=== PATIENT | male | born 1990 | race Caucasian/White ===

== ENCOUNTER 2016-07-25 01:24 | Emergency (ER) | payer SELFPAY ==
[2016-07-25 01:34] VITALS: RESP 16; TEMP 98
[2016-07-25] MEDS ORDERED: Sodium Chloride 0.9% 1,000 ML PRIMARY IV ONE (01:34)
[2016-07-25] MEDS ORDERED: DEXAMETHASONE PF 10 MG/1 ML VIAL IV ONE (01:34)
[2016-07-25] MEDS ORDERED: Famotidine Inj 20 MG in Normal Saline Flush 10 ML IVP ONE (01:34)
--- NOTE | 2016-07-25 01:40 | PDOC ---
Allergy Symptoms HPI - General Chief Complaint: Allergic Reaction/Anaphylaxis Stated Complaint: Allergic reaction Date Seen by Provider: 07/25/16 Time Seen by Provider: 01:35 Source: POSITIVE: Patient, Spouse Exam Limitations: POSITIVE: No limitations Nurse's Notes Reviewed & Considered: Yes - History of Present Illness Initial Comments: Patient comes in today with chief complaint of allergic reaction. Patient comes in today with swelling of his lips hands and feet and a rash over his face and back as well as his anterior chest. The only substance he feels possibly may have caused this with some pistachio ice cream. He relates that he has had pistachios in the last 6 months but no reaction at that time. As any fever or chills or sweats, nausea vomiting or diarrhea, no hematuria or dysuria. Body Location Affected: REPORTS: Upper Extremity (L), Upper Extremity (R), Lower Extremity (L), Lower Extremity (R), Scalp, Forehead, Brow, Face, Lip, Neck , Chest, Back Timing: REPORTS: Abrupt Duration: 1 hour Severity: Moderate Quality: REPORTS: Itching Associated Symptoms: REPORTS: Skin Rash, Swelling Identified Causes: REPORTS: Possibly When Exposed: REPORTS: Just Prior to Sx Onset Where Exposed: REPORTS: Home Suspected Etiology: REPORTS: Nuts Similar Symptoms Previously: Yes (similar reaction to sweet and sour sauce.) Recent Care Received: REPORTS: Denies Treatment Prior To Arrival: REPORTS: No 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 Any Prior Injuries Related to Current Complaint?: No - Patient Home Medications Home Medications: Home Medications Diphenhydramine HCl [Benadryl] 100 mg PO PRN 07/25/16 - Patient Allergies Allergies/Adverse Reactions: Allergies Allergy/AdvReac Type Severity Reaction Status Date / Time cabbage Allergy HIVES Verified 07/25/16 01:27 Past Medical History - gavin [place] History: Denies History Cardiovascular History: Denies History Respiratory History: Denies History Gastrointestinal History: Denies History Genitourinary History: Denies History Endocrine History: Denies History Musculoskeletal History: Denies History Neurological History: Denies History Blood Disorders: Denies History Psychiatric History: Denies History Male Reproductive History: Denies History Cancer History: Denies History In Past Year Been Physically Harmed or Verbally Threatened: No History of MDRO: No Tobacco Use: Never Smoker Alcohol Use: Occasionally Substance Use Type: Marijuana Previous Surgical History: No Significant Family History: No pertinent family hx ROS - Limitations ROS Limitations: No Limitations Constitution: REPORTS: Denies Symptoms Cardiovascular: REPORTS: Denies Cardiac Symptoms Respiratory: REPORTS: Denies Resp Symptoms Neurological: REPORTS: Denies Neuro Symptoms Gastrointestinal: REPORTS: Denies GI Symptoms Endocrine: REPORTS: Denies Symptoms Musculoskeletal: REPORTS: Pedal Edema, Other (Edema of his hands) Genitourinary: REPORTS: Denies Symptoms Eyes: REPORTS: Denies Symptoms ENT: REPORTS: Tongue Swelling, Throat Swelling, Lip Swelling Skin: REPORTS: Denies Skin Symptoms Lympathic: REPORTS: Denies Lympathic Symptoms Immunologic: POSITIVE: Food Allergry (Sweet and sour sauce) Psychiatric: POSITIVE: Denies Psych Symptoms Allergy Symptoms Physical Exam - General Appearance General Appearance: POSITIVE: Alert, Cooperative, No Evidence of Trauma, Mild Distress - HEENT Head / Face: POSITIVE: Atraumatic, Facial Swelling Eyes: POSITIVE: Inspection Normal, PERRL, EOM's Intact, Eyelids Uninjured, Sclera Normal Ears: POSITIVE: Ears Normal Inspection, Auricle Normal Nose: POSITIVE: Inspection Normal, No Apparent Trauma, Nares Normal, No CSF Leak Oropharynx: POSITIVE: Angioedema (facial) Dental: POSITIVE: No Dental Injury - Pupils Pupil Size: 5 mm: Bilateral - Neck Neck: POSITIVE: Normal Inspection, No Apparent Injury - Respiratory Respiratory: POSITIVE: No Respiratory Distress, Breath Sounds Normal - Cardiovascular Cardiovascular: POSITIVE: Regular Rate and Rhythm, Heart Sounds Normal - Abdomen Abdomen: Soft: (All Quadrants), Normal Bowel Sounds: (All Quadrants), Denies Tenderness: (All Quadrants) - Skin Skin: POSITIVE: Intact, Normal For Race, Warm, Dry, Rash - Extremities Extremity: Non-Tender: (All Extremities), Normal ROM: (All Extremities), Normal Inspection: (All Extremities) - Neurological / Psychological Neurological: POSITIVE: Affect Apporpriate, Oriented X3 Allergy Symptoms Progress - Treatment Treatment: POSITIVE: Dexamethasone, Ranitidine - Patient's Progress Pain Medication Addressed: POSITIVE: Not Applicable Re-examine Time: 02:07 Status: POSITIVE: Improved MDM / ED Course: Patient was examined and an IV established. He received 10 mg of IV dexamethasone, Pepcid, normal saline, and Zofran. His rash resolved his swelling resolved and he wished to be discharged home. Next Assessment: Allergic reaction improved. Plan: Discharge home. - Consult Counseled: POSITIVE: Patient, Family, RE: DX Patient Care Time - Estimated PCT Patient Care Time (In Minutes): 20 Vital Signs - Recent Vital Signs Vital Signs: Vital Signs (Last 8 hours) Temp Pulse Resp BP Pulse Ox 07/25/16 01:24 98.0 F 84 16 137/84 94 - VS Reviewed Vital Signs Reviewed: Yes Discharge Clinical Impression: Allergic urticaria Discharge Disposition: Discharged to Home Condition: Stable Patient Instructions Given at Discharge: Urticaria (ED), Allergies (ED)
[2016-07-25] MEDS ORDERED: ONDANSETRON 4 MG/2 ML VIAL IVP ONE (01:45)
== END 2016-07-25 02:19 | disposition home or self-care (01) ==
LOC: ER 01:24
DX: L50.0 Allergic urticaria (principal); R22.0 Localized swelling, mass and lump, head; R21 Rash and other nonspecific skin eruption
CPT/HCPCS: 96361; 96374; 96375; 99282; 99283; J1100; J2405; J7030

== ENCOUNTER 2016-08-08 11:45 | Emergency (ER) | payer SELFPAY ==
[2016-08-08 12:01] VITALS: RESP 16; TEMP 97.6
[2016-08-08] MEDS ORDERED: Sodium Chloride 0.9% 1,000 ML PRIMARY IV ONE (12:01)
[2016-08-08] MEDS ORDERED: NORMAL SALINE 10 ML SYRINGE FLUSH IVP PRN (12:01)
[2016-08-08] MEDS ORDERED: ONDANSETRON 4 MG/2 ML VIAL IVP ONE (12:01)
[2016-08-08] MEDS ORDERED: diphenhydrAMINE 50 MG/1 ML VIAL IV ONE (12:01)
[2016-08-08] MEDS ORDERED: LORazepam 2 MG/1 ML VIAL IVP ONE (12:03)
[2016-08-08 12:17] LABS: BASOPHILS # (AUTO) 0.04 10*3/UL; BASOPHILS % (AUTO) 0.4 % (0-1); EOSINOPHILS # (AUTO) 0.04 10*3/UL; EOSINOPHILS % (AUTO) 0.4 % (0-8); HEMATOCRIT 49.1 % (42.0-52.0); HEMOGLOBIN 17.5 g/dL (14.0-18.0); LYMPHOCYTES # (AUTO) 2.16 10*3/uL; MEAN CORPUSCULAR HEMOGLOBIN 29.7 PG (27-31); MEAN CORPUSCULAR HGB CONC 35.6 g/dL (33-37); MEAN PLATELET VOLUME 8.6 FL (7.4-12.2); MONOCYTES # (AUTO) 0.86 10*3/UL (0.3-0.8); MONOCYTES % (AUTO) 8.2 % (5-15); NEUTROPHILS # (AUTO) 7.39 10*3/UL; NEUTROPHILS % (AUTO) 70.1 % (50-80); RED BLOOD COUNT 5.89 10^6/uL (4.70-6.10)
[2016-08-08 12:19] LABS: PLATELET MORPHOLOGY COMMENT NORMAL MORPHOLOGY (NORM); RBC MORPHOLOGY COMMENT NORMAL MORPHOLOGY (NORM); WBC MORPHOLOGY COMMENT NORMAL MORPHOLOGY (NORM)
[2016-08-08 12:26] LABS: BLOOD UREA NITROGEN 18 mg/dL (7-22); BUN/CREATININE RATIO 16.36 (6-20); CALCIUM 9.9 mg/dL (8.7-10.7); EST GLOMERULAR FILTRATION > 60 (>60 ml/min/1.73m(2)); SERUM ALBUMIN 4.7 g/dL (3.5-4.8)
--- NOTE | 2016-08-08 13:46 | PDOC ---
Nausea/Vomiting/Diarrhea HPI - General Chief Complaint: Nausea / Vomiting / Diarrhea Stated Complaint: vomiting, numb hands Date Seen by Provider: 08/08/16 Time Seen by Provider: 11:55 Source: POSITIVE: Patient Exam Limitations: POSITIVE: No limitations Nurse's Notes Reviewed & Considered: Yes - History of Present Illness Initial Comments: The patient is a 26-year-old male. Patient presents to the emergency room with a 12 hour history of nausea and vomiting and an anxiety attack with hyperventilation. He states his hands and feet and face are becoming numb. He states he cannot slow down his breathing. He denies using any illegal substances. No head, chest or abdominal pain. Some abdominal cramping. Severe anxiety. Body Location Affected: REPORTS: Abdomen (Nausea and vomiting), Other (Anxiety as above.) Timing: REPORTS: Gradual Duration: <24 hours (Reportedly 12 hours) Severity: Moderate Quality: REPORTS: Cramping, Other (Patient denies any pain anywhere except for some mild abdominal cramping.) Abdominal Pain Onset Location: DENIES: RUQ, LUQ, RLQ, LLQ, Epigastric, Periumbilical, Suprapubic, Generalized abdomen, Flank, Other Abdominal Pain Radiation: REPORTS: No radiation Context: DENIES: None, Activity, Bending, Coughing, Fall, Lifting, Near Fall, Rest, Sitting, Sleep, Standing, Turning, Emotional stress, Camping, Bad Food, Out of Country Travel, Other, Recent Surgery, Recent Trauma Modifying Factors: improves with: Nothing Associated Symptoms: REPORTS: Vomiting, Other (Anxiety) Similar Symptoms Previously: Yes Recent Care Received: REPORTS: Denies Any Prior Injuries Related to Current Complaint?: No - Patient Home Medications Home Medications: Home Medications Ondansetron HCl [Zofran] 8 mg PO PRN 08/08/16 - Patient Allergies Allergies/Adverse Reactions: Allergies Allergy/AdvReac Type Severity Reaction Status Date / Time cabbage Allergy HIVES Verified 08/08/16 11:52 Past Medical History - heen HEENT History: Denies History Cardiovascular History: Denies History Respiratory History: Denies History Gastrointestinal History: Denies History Genitourinary History: Denies History Endocrine History: Denies History Musculoskeletal History: Denies History Prosthesis or Implant: No Neurological History: Denies History Blood Disorders: Denies History Psychiatric History: Denies History History of Sexually Transmitted Diseases: No Cancer History: Denies History In Past Year Been Physically Harmed or Verbally Threatened: No History of MDRO: No History of Other Communicable Diseases: No Tobacco Use: Never Smoker Alcohol Use: Occasionally Substance Use Type: Marijuana Previous Surgical History: No Significant Family History: No pertinent family hx Past Medical History Reviewed: Reviewed - No Changes ROS - Limitations ROS Limitations: No Limitations Constitution: REPORTS: Denies Symptoms Cardiovascular: REPORTS: Denies Cardiac Symptoms Respiratory: REPORTS: Denies Resp Symptoms Neurological: REPORTS: Other (Numbness and tingling in hands) Gastrointestinal: REPORTS: Nausea, Vomitting Endocrine: REPORTS: Denies Symptoms Musculoskeletal: REPORTS: Denies MS Symptoms Genitourinary: REPORTS: Denies Symptoms Eyes: REPORTS: Denies Symptoms ENT: REPORTS: Denies Symptoms Skin: REPORTS: Denies Skin Symptoms Lympathic: REPORTS: Denies Lympathic Symptoms Immunologic: POSITIVE: Denies Symptoms Psychiatric: POSITIVE: Anxiety Nausea/Vomiting/Diarrhea Exam - General Appearance General Appearance: POSITIVE: Alert, Cooperative, No Acute Distress, No Evidence of Trauma, Anxious, Other ( Anxious and hyperventilating some spasming of his hands due to hyperventilation) - HEENT HEENT: POSITIVE: Head Inspection Nml, Eyes Inspection Nml, Ears Inspection Nml, Nose Inspection Nml, Oral/Dental Inspect. Nml, Pharynx Inspect. Nml, PERRL, EOMI - Neck Neck: POSITIVE: Supple, Normal Inspection, Non Tender - Respiratory Respiratory: POSITIVE: No Respiratory Distress, Breath Sounds Normal, Chest Non- Tender - Cardiovascular Cardiovascular: POSITIVE: Regular Rate and Rhythm, Heart Sounds Normal, Equal Pulses, Strong Pulses Peripheral Pulses: Radial (R): 2+, Radial (L): 2+ - Abdomen Abdomen: Soft: (All Quadrants), Normal Bowel Sounds: (All Quadrants), Denies Tenderness: (All Quadrants), No Splenomegaly: (All Quadrants), No Hepatomegaly: (All Quadrants), No Guarding: (All Quadrants), No Rebound: (All Quadrants), No Palpable Pulse: (All Quadrants), No Palpabale Mass: (All Quadrants), No Distention: (All Quadrants), No Rigidity: (All Quadrants) - Back Back: POSITIVE: Normal Inspection - Skin Skin: POSITIVE: Intact, Normal For Race, Warm, Dry, No Rash - Extremities Extremity: Non-Tender: (All Extremities), Normal ROM: (All Extremities), Normal Inspection: (All Extremities) - Neurological / Psychological Neurological: POSITIVE: Oriented X3, 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 NEGATIVE: Affect Apporpriate (Very anxious affect) N/V/D Progress - Results Reviewed by me Lab Results Reviewed: Yes Lab Results:: Laboratory Results 08/08/16 Range/Units 12:05 WBC 10.53 (4.8-10.8) 10^3/uL RBC 5.89 (4.70-6.10) 10^6/uL Hgb 17.5 (14.0-18.0) g/dL Hct 49.1 (42.0-52.0) % MCV 83.4 (80-90) FL MCH 29.7 (27-31) PG MCHC 35.6 (33-37) g/dL RDW Std Deviation 39.4 (39-50) fL RDW Coeff of Petar 12.9 (11.5-14.5) % Plt Count 324 (140-350) 10*3/uL MPV 8.6 (7.4-12.2) FL Immature Gran % (Auto) 0.4 (0-5) % Neut % (Auto) 70.1 (50-80) % Lymph % (Auto) 20.5 (10-50) % [place] % (Auto) 8.2 (5-15) % Eos % (Auto) 0.4 (0-8) % Baso % (Auto) 0.4 (0-1) % Immature Gran # (Auto) 0.04 10*3/UL Neut # (Auto) 7.39 10*3/UL Lymph # (Auto) 2.16 10*3/uL [place] # (Auto) 0.86 H (0.3-0.8) 10*3/UL Eos # (Auto) 0.04 10*3/UL Baso # (Auto) 0.04 10*3/UL WBC Morphology Comment Normal morphology (NORM) Plt Morphology Comment Normal morphology (NORM) RBC Morph Comment Normal morphology (NORM) Sodium 139 (135-145) meq/L Potassium 3.9 (3.8-5.2) meq/L Chloride 102 (98-112) meq/L Carbon Dioxide 22 L (23-33) meq/L Anion Gap 15 (5-20) BUN 18 (7-22) mg/dL Creatinine 1.1 (0.70-1.50) mg/dL Estimated GFR > 60 (>60 ml/min/1.73m(2)) BUN/Creatinine Ratio 16.36 (6-20) Glucose 107 (78-110) mg/dL Calculated Osmolality 289.0 (267-292) mOsm/kg Calcium 9.9 (8.7-10.7) mg/dL Total Bilirubin 1.0 (0.3-1.2) mg/dL AST 33 (21-57) IU/L ALT 33 (21-72) IU/L Alkaline Phosphatase 115 (38-126) IU/L Total Protein 8.4 H (6.1-8.0) g/dL Albumin 4.7 (3.5-4.8) g/dL Globulin 3.7 (2.50-4.10) g/dL Albumin/Globulin Ratio 1.20 L (1.3-2.0) mg/g - Patient's Progress Pain Medication Addressed: POSITIVE: Not Applicable School/Work Release Addressed: POSITIVE: Not Applicable Re-examine Time: 13:35 Re-Examine Comment: Patient given a liter of normal saline and 4 mg of Zofran along with 2 mg of Ativan. Patient had no vomiting while in the emergency room. He is much more relaxed and his hyperventilation episode has resolved. He is asymptomatic on discharge. Status: POSITIVE: Improved, Re-Examined (Anxiety attack with hyperventilation resolved. No nausea on discharge.) - Consult Counseled: POSITIVE: Patient, RE: Lab Results, RE: DX, RE: Need for F/U Patient Care Time - Estimated PCT Patient Care Time (In Minutes): 50 Vital Signs - Recent Vital Signs Vital Signs: Vital Signs (Last 8 hours) Temp Pulse Resp BP Pulse Ox 08/08/16 11:55 97.6 F 100 16 111/63 98 - VS Reviewed Vital Signs Reviewed: Yes Discharge Clinical Impression: Nausea and vomiting, Hyperventilation, Anxiety Discharge Disposition: Discharged to Home Condition: Stable Patient Instructions Given at Discharge: Acute Nausea and Vomiting (ED), Anxiety (ED) Additional Instructions: Your blood tests are normal. I'm glad you're feeling better. I believe most of your problem was his severe anxiety attack with hyperventilation. You're going to be fine. Clear liquid diet for 12 hours. Follow-up with your primary care provider. Return here anytime as necessary. Follow Up With: NONE,NONE [Primary Care Provider] - (Instructions as above. Follow-up with your primary care provider. Return here as necessary.)
== END 2016-08-08 13:45 | disposition home or self-care (01) ==
LOC: ER 11:45
DX: R11.2 Nausea with vomiting, unspecified (principal); R06.4 Hyperventilation; F41.9 Anxiety disorder, unspecified; R20.0 Anesthesia of skin
CPT/HCPCS: 80053; 85025; 96361; 96374; 96375; 99283 ×2; J1200; J2060; J2405; J7030

== ENCOUNTER 2016-08-12 10:02 | Emergency (ER) | payer SELFPAY ==
[2016-08-12] MEDS ORDERED: ONDANSETRON 4 MG/2 ML VIAL ONE (10:05)
[2016-08-12] MEDS ORDERED: Sodium Chloride 0.9% 2,000 ML PRIMARY IV ONE (10:22)
[2016-08-12] MEDS ORDERED: PROMETHAZINE 25 MG/1 ML VIAL IM ONE (10:24)
[2016-08-12] MEDS ORDERED: ONDANSETRON 4 MG/2 ML VIAL IVP ONE (10:24)
[2016-08-12 10:52] LABS: BASOPHILS # (AUTO) 0.02 10*3/UL; BASOPHILS % (AUTO) 0.3 % (0-1); EOSINOPHILS % (AUTO) 1.3 % (0-8); HEMATOCRIT 47.1 % (42.0-52.0); HEMOGLOBIN 16.8 g/dL (14.0-18.0); LYMPHOCYTES # (AUTO) 2.11 10*3/uL; MEAN CORPUSCULAR HEMOGLOBIN 29.9 PG (27-31); MEAN CORPUSCULAR HGB CONC 35.7 g/dL (33-37); MEAN PLATELET VOLUME 9.5 FL (7.4-12.2); MONOCYTES # (AUTO) 0.91 10*3/UL (0.3-0.8); MONOCYTES % (AUTO) 11.8 % (5-15); NEUTROPHILS # (AUTO) 4.51 10*3/UL; NEUTROPHILS % (AUTO) 58.7 % (50-80); RED BLOOD COUNT 5.61 10^6/uL (4.70-6.10)
[2016-08-12 10:53] LABS: PLATELET MORPHOLOGY COMMENT NORMAL MORPHOLOGY (NORM); RBC MORPHOLOGY COMMENT NORMAL MORPHOLOGY (NORM); WBC MORPHOLOGY COMMENT NORMAL MORPHOLOGY (NORM)
--- NOTE | 2016-08-12 11:01 | DI ---
CT HEAD W/O CONTRAST,08/12/2016 10:22 AM: Clinical History: Head injury 4 days ago with intermittent vomiting. Previous Exam: None at this facility. Findings: Multiple helically acquired CT images are obtained through the brain without contrast, and demonstrat e normal, symmetric ventricles and other CSF containing spaces. There is no mass, hemorrhage or midli ne shift. The surrounding soft tissue and osseous structures are unremarkable. Impression: Normal CT head.
[2016-08-12 11:02] LABS: BLOOD UREA NITROGEN 14 mg/dL (7-22); C-REACTIVE PROTEIN 0.6 mg/dL (0.0-0.9); EST GLOMERULAR FILTRATION > 60 (>60 ml/min/1.73m(2)); SERUM ALBUMIN 4.9 g/dL (3.5-4.8)
[2016-08-12 11:33] LABS: ERYTHROCYTE SEDIMENTATION RATE 2 MM/HR (0-15)
--- NOTE | 2016-08-12 11:41 | DI ---
XR ABDOMEN ACUTE 2/ABD 1/CXR,08/12/2016 10:22 AM: Clinical History: 4 days of intermittent vomiting. Previous Exam: None at this facility. Findings: A routine acute abdominal series is obtained comprising 4 total views, and demonstrate a nonobstructi ve, nonspecific bowel gas pattern. There is air noted throughout the colon. There is no fracture and no pathologic calcification identified. This delta structures are unremarkab le. There is no subdiaphragmatic free air the lungs are clear. Impression: No acute intra-abdominal pathology.
[2016-08-12 11:52] VITALS: TEMP 98.2
[2016-08-12 11:54] LABS: URINE SAMPLE TYPE CLEAN CATCH URINE
[2016-08-12 11:55] LABS: BILIRUBIN,URINE NEGATIVE (NEG); CLARITY,URINE CLEAR (CLEAR); COLOR,URINE YELLOW; GLUCOSE, URINE (UA) NEGATIVE (NEG); NITRATE,URINE NEGATIVE (NEG); OCCULT BLOOD,URINE Trace-intact (NEG); PH,URINE 8.5 (5.0-8.5); PROTEIN,URINE NEGATIVE (NEG); UROBILINOGEN,URINE 0.2 EU/dL (0.2)
[2016-08-12 11:59] LABS: BACTERIA,URINE RARE; SQUAMOUS EPITHELIAL CELL,UR RARE
--- NOTE | 2016-08-12 13:01 | PDOC ---
Nausea/Vomiting/Diarrhea HPI - General Chief Complaint: Nausea / Vomiting / Diarrhea Stated Complaint: nausea and vomitng since 499 Date Seen by Provider: 08/12/16 Time Seen by Provider: 11:45 - History of Present Illness Initial Comments: Patient is very 26-year-old gentleman who has been pretty healthy but unfortunately Wednesday when out and had some alcoholic beverages. On Wednesday he felt very poorly and that of nauseated vomiting was seen here in the emergency department nothing significant was found at that time. He went home did pretty well on Wednesday and Wednesday and into Wednesday but today on Wednesday is having return of nausea vomiting feeling poorly. He states he did hit his head in a fall on Wednesday has had a little bit a headache off and on since that time he's not sure if this would be related to his nausea and vomiting or not. Doesn't have any other substantial neurologic complaint. He does not have any obvious sick contacts. He denies substantial withdrawal from any substances in the past and doesn't believe he's been using anything regularly. - Patient Home Medications Home Medications: Home Medications Ondansetron HCl [Zofran] 8 mg PO PRN 08/08/16 - Patient Allergies Allergies/Adverse Reactions: Allergies Allergy/AdvReac Type Severity Reaction Status Date / Time cabbage Allergy HIVES Verified 08/08/16 11:52 Past Medical History - heen HEENT History: Denies History Cardiovascular History: Denies History Respiratory History: Denies History Gastrointestinal History: Denies History Genitourinary History: Denies History Endocrine History: Denies History Musculoskeletal History: Denies History Prosthesis or Implant: No Neurological History: Denies History Blood Disorders: Denies History Psychiatric History: Denies History History of Sexually Transmitted Diseases: No Cancer History: Denies History In Past Year Been Physically Harmed or Verbally Threatened: No History of MDRO: No History of Other Communicable Diseases: No Tobacco Use: Never Smoker Alcohol Use: Occasionally Substance Use Type: Marijuana Previous Surgical History: No Significant Family History: No pertinent family hx Past Medical History Reviewed: Reviewed - No Changes ROS - Limitations ROS Limitations: No Limitations Constitution: REPORTS: Denies Symptoms. DENIES: Chills, Fever Cardiovascular: REPORTS: Denies Cardiac Symptoms Respiratory: REPORTS: Denies Resp Symptoms Nausea/Vomiting/Diarrhea Exam - General Appearance General Appearance: POSITIVE: Alert, Cooperative, No Acute Distress - HEENT HEENT: POSITIVE: Head Inspection Nml, Eyes Inspection Nml - Neck Neck: POSITIVE: Supple, Normal Inspection - Respiratory Respiratory: POSITIVE: No Respiratory Distress, Breath Sounds Normal - Cardiovascular Cardiovascular: POSITIVE: Regular Rate and Rhythm, Heart Sounds Normal - Abdomen Abdomen: Soft: (All Quadrants), Normal Bowel Sounds: (All Quadrants) Additional Abdominal Details: Mild diffuse tenderness - Back Back: POSITIVE: Normal Inspection - Skin Skin: POSITIVE: Intact, Normal For Race, Warm, Dry - Neurological / Psychological Neurological: POSITIVE: Affect Apporpriate, Oriented X3 N/V/D Progress - Results Reviewed by me Radiology Findings: Acute abdominal series and CT scan of the head are benign Lab Results Reviewed: Yes Lab Results:: Laboratory Results 08/12/16 08/12/16 Range/Units 09:55 10:22 WBC 7.68 (4.8-10.8) 10^3/uL RBC 5.61 (4.70-6.10) 10^6/uL Hgb 16.8 (14.0-18.0) g/dL Hct 47.1 (42.0-52.0) % MCV 84.0 (80-90) FL MCH 29.9 (27-31) PG MCHC 35.7 (33-37) g/dL RDW Std Deviation 39.6 (39-50) fL RDW Coeff of Petar 12.9 (11.5-14.5) % Plt Count 314 (140-350) 10*3/uL MPV 9.5 (7.4-12.2) FL Immature Gran % (Auto) 0.4 (0-5) % Neut % (Auto) 58.7 (50-80) % Lymph % (Auto) 27.5 (10-50) % [place] % (Auto) 11.8 (5-15) % Eos % (Auto) 1.3 (0-8) % Baso % (Auto) 0.3 (0-1) % Immature Gran # (Auto) 0.03 10*3/UL Neut # (Auto) 4.51 10*3/UL Lymph # (Auto) 2.11 10*3/uL [place] # (Auto) 0.91 H (0.3-0.8) 10*3/UL Eos # (Auto) 0.10 10*3/UL Baso # (Auto) 0.02 10*3/UL WBC Morphology Comment Normal morphology (NORM) Plt Morphology Comment Normal morphology (NORM) RBC Morph Comment Normal morphology (NORM) ESR 2 (0-15) MM/HR Sodium 138 (135-145) meq/L Potassium 3.6 L (3.8-5.2) meq/L Chloride 100 (98-112) meq/L Carbon Dioxide 24 (23-33) meq/L Anion Gap 14 (5-20) BUN 14 (7-22) mg/dL Creatinine 1.0 (0.70-1.50) mg/dL Estimated GFR > 60 (>60 ml/min/1.73m(2)) BUN/Creatinine Ratio 14.00 (6-20) Glucose 91 (78-110) mg/dL Calculated Osmolality 286.0 (267-292) mOsm/kg Calcium 10.0 (8.7-10.7) mg/dL Total Bilirubin 0.9 (0.3-1.2) mg/dL AST 37 (21-57) IU/L ALT 29 (21-72) IU/L Alkaline Phosphatase 97 (38-126) IU/L C-Reactive Protein 0.6 (0.0-0.9) mg/dL Total Protein 8.5 H (6.1-8.0) g/dL Albumin 4.9 H (3.5-4.8) g/dL Globulin 3.6 (2.50-4.10) g/dL Albumin/Globulin Ratio 1.30 (1.3-2.0) mg/g Ur Collection Type Clean catch urine Urine Color Yellow Urine Clarity Clear (CLEAR) Urine pH 8.5 (5.0-8.5) Ur Specific [place] 1.015 (1.005-1.030) Urine Protein Negative (NEG) mg/dl Urine Glucose (UA) Negative (NEG) mg/dL Urine Ketones Negative (NEG) Urine Occult Blood Trace-intact H (NEG) Urine Nitrate Negative (NEG) Urine Bilirubin Negative (NEG) Urine Urobilinogen 0.2 (0.2) EU/dL Ur Leukocyte Esterase Negative (NEG) Urine RBC 2-4 (NONE) /hpf Urine WBC 1-3 (NONE) Ur Squamous Epith Cells Rare (NONE) Ur Renal Epithelial Cell None (NONE) Urine Crystals None Urine Bacteria Rare (NONE) Urine Casts None (NONE) Urine Mucus None (NONE) Urine Trichomonas None (NONE) Urine Yeast None (NONE) Ur Culture Indicated? Culture not set - Patient's Progress MDM / ED Course: Really all of his labs look very good his CT scan of his head and his abdominal films all look good as well. His vital signs are pretty benign. Difficult to explain why he's had waxing and waning vomiting over the period of 4 days or so but at this point I don't feel that aggressive workup such as CAT scan of his belly or anything of that nature is in order. If he does worsen the certainly may need to be done. He is encouraged follow-up with his primary care provider soon as possible. Patient Care Time - Estimated PCT Patient Care Time (In Minutes): 40 Vital Signs - Recent Vital Signs Vital Signs: Vital Signs (Last 8 hours) Temp Pulse Resp BP Pulse Ox 08/12/16 11:39 98.2 F 82 22 129/73 100 - VS Reviewed Vital Signs Reviewed: Yes Discharge Clinical Impression: Nausea and vomiting, Abdominal pain Discharge Disposition: Discharged to Home Condition: Stable Patient Instructions Given at Discharge: Acute Nausea and Vomiting (ED), Gastroenteritis (ED) Additional Instructions: Use Zofran as directed Follow-up with her primary care provider soon as possible Return here with worsening of your symptoms or other issues or complaints Frequent sips of fluid to stay hydrated and advance diet as tolerated
[2016-08-12 13:09] VITALS: RESP 16
== END 2016-08-12 14:30 | disposition home or self-care (01) ==
LOC: ER 10:02
DX: R11.2 Nausea with vomiting, unspecified (principal); R10.84 Generalized abdominal pain; R51 Headache
CPT/HCPCS: 70450; 74022; 80053; 81001; 81003; 83690; 85025; 85652; 86140; 96361; 96372; 96374; 99283; J2405; J2550; J7030